=== PATIENT | female | born 1975 | race Caucasian/White ===

== ENCOUNTER 2019-10-19 18:12 | Emergency (ER) | payer OTHER ==
[2019-10-19 18:24] VITALS: BP 108/86; PULSE 85; TEMP 97.8; BMI 29.8
[2019-10-19 19:50] LABS: BASO % 0.3 % (0-2.0); EOS % 0.7 % (0-4.5); HEMATOCRIT 36.7 % (32.4-45.2); HEMOGLOBIN 12.2 GM/dl (10.7-15.3); LYMPH % 15.1 % (8-40); MCHC 33.2 g/dl (32.0-36.0); MEAN CELL VOLUME 90.3 fl (80-96); MEAN PLT VOLUME 8.4 fl (7.5-11.1); MONO % 6.7 % (3.8-10.2); NEUT % 77.2 % (42.8-82.8); PLATELET COUNT 290 K/MM3 (134-434); RBC 4.07 M/mm3 (3.60-5.2); RDW 12.3 % (11.6-15.6); WHITE BLOOD COUNT 14.3 K/mm3 (4.0-10.8)
[2019-10-19 20:02] LABS: ALBUMIN 3.6 g/dl (3.4-5.0); BILIRUBIN,TOTAL 0.4 mg/dl (0.2-1); CREATININE 0.8 mg/dl (0.55-1.3); TOT PROT 6.6 g/dl (6.4-8.2)
[2019-10-19 22:02] LABS: CALCIUM 8.6 mg/dl (8.5-10); POTASSIUM 3.8 mmol/L (3.5-5.1)
--- NOTE | 2019-10-19 22:47 | PDOC ---
Documentation entered by Belinda Devlin SCRIBE, acting as scribe for Moises Coleman MD. Moises Coleman MD: This documentation has been prepared by the scribe, Belinda Devlin SCRIBE, under my direction and personally reviewed by me in its entirety. I confirm that the documentation accurately reflects all work, treatment, procedures, and medical decision making performed by me. History of Present Illness - General Chief Complaint: Lightheaded Stated Complaint: DIZZINESS Time Seen by Provider: 10/19/19 19:14 History Source: Patient Exam Limitations: No Limitations - History of Present Illness Initial Comments: 10/19/19 19:32 The patient is a 43-year-old female with no reported past medical history or daily medication use who presents to the emergency department with lightheadedness, shortness of breath, weakness, and s/p a fall. The patient reports pain to her left hip, s/p a fall down 3 flights of stairs around 2:00 pm today. The patient states she was able to ambulate after the fall. The patient reports she went to the [employer] later today while being there, she started to feel lightheaded and weak, like she couldnt breathe anymore. The patient states she checked her heart rate on her watch, which was reported to be 51, which is lower than baseline. The patient reports she called her , who went to pick her up at the [employer]. The reports while the patient was in the car, she had difficulty getting out of the car, and the son called EMS. At the ER, the patient denies shortness of breath but reports she still feels weak. Denies leg swelling, hx of blood clots, fever, chills. Denies recent travel or prolonged immobilization. Allergies: NKA Family history: DM. Social history: Denies the use of tobacco. Past History - Past Medical History Allergies/Adverse Reactions: Allergies Allergy/AdvReac Type Severity Reaction Status Date / Time No Known Allergies Allergy Verified 10/19/19 18:13 Home Medications: Ambulatory Orders NK [No Known Home Medication] 10/19/19 COPD: No CHF: No Other medical history: PT DENIES - Psycho Social/Smoking Cessation Hx Smoking History: Never smoked Hx Alcohol Use: No Drug/Substance Use Hx: No Review of Systems - Review of Systems Able to Perform ROS?: Yes Comments:: 10/19/19 19:32 Constitutional - +weakness. Patient denies fever or chills. HEENT: denies vision changes, sore throat Respiratory: +SOB. Denies cough. Cardiac: denies chest pain, palpitations, light headedness, leg swelling Abd/GI: denies abd pain, nausea, vomiting, blood per rectum, melena, diarrhea : denies dysuria, frequency, discharge Musculskelatal - +left hip pain. denies back pain, joint swelling skin - denies bruising, erythema, rash neurological: +lightheadedness. denies headache, numbness, focal weakness, tingling, ataxia, weakness hematologic: denies anemia, easy bruising, easy bleeding *Physical Exam - Vital Signs Last Vital Signs Temp Pulse Resp BP Pulse Ox 97.8 F 85 17 108/86 100 10/19/19 18:13 10/19/19 18:13 10/19/19 18:13 10/19/19 18:13 10/19/19 18:13 - Physical Exam Comments: 10/19/19 19:34 CONSTITUTIONAL: Well-appearing; well-nourished; in no apparent distress HEAD: Normocephalic; atraumatic EYES: PERRL; EOM intact ENMT: External appears normal; normal oropharynx NECK: Supple; non-tender; no cervical lymphadenopathy CARD: Normal S1, S2; no murmurs, rubs, or gallops RESP: Normal chest excursion with respiration; breath sounds clear and equal bilaterally; no wheezes, rhonchi, or rales ABD: Soft, non-distended; non-tender; no palpable organomegaly, no palpable hernias MSK: no point tenderness. EXT: Normal ROM in all four extremities; non-tender to palpation; distal pulses intact SKIN: +15cm bruising to the left buttocks. Warm, dry, no rash NEURO: No focal neurological deficiencies. ED Treatment Course - LABORATORY CBC & Chemistry Diagram: 10/19/19 19:34 10/19/19 19:34 - ADDITIONAL ORDERS Additional order review: Laboratory Results 10/19/19 10/19/19 19:34 19:24 BUN 12.0 Creatinine 0.8 Est GFR (CKD-EPI)AfAm 103.19 Est GFR (CKD-EPI)NonAf 89.04 Random Glucose 111 H Total Bilirubin 0.4 AST 19 ALT 13 Alkaline Phosphatase 64 Troponin I < 0.03 Total Protein 6.6 Albumin 3.6 10/19/19 19:34 RBC 4.07 MCV 90.3 MCHC 33.2 RDW 12.3 MPV 8.4 Neutrophils % 77.2 Lymphocytes % 15.1 Monocytes % 6.7 Eosinophils % 0.7 Basophils % 0.3 - RADIOLOGY Radiology Studies Ordered: Category Date Time Status CHEST PA & LAT [RAD] Stat Radiology 10/19/19 19:15 Taken Medical Decision Making - Medical Decision Making 10/19/19 19:[address] Coleman at 18:21. Normal sinus rhythm at 77bpm. normal axis Normal intervals No ischemic findings 10/20/19 04:44 perc- cxr clear, as read by me, referred to radiology for definitive read buttock hematoma with no bony tenderness--will not image ? etiology of other symptoms; no event on monitor in ED continue amato outpt Discharge - Discharge Information Problems reviewed: Yes Clinical Impression/Diagnosis: Fall (on) (from) other stairs and steps, initial encounter Condition: Stable Disposition: HOME - Follow up/Referral - Patient Discharge Instructions Patient Printed Discharge Instructions: DI for Hematoma (Bruise) - Post Discharge Activity
--- NOTE | 2019-10-20 16:02 | EKG ---
Test Reason : Blood Pressure : / mmHG Vent. Rate : 077 BPM Atrial Rate : 077 BPM P-R Int : 164 ms QRS Dur : 086 ms QT Int : 366 ms P-R-T Axes : 037 051 034 degrees QTc Int : 414 ms NORMAL SINUS RHYTHM NORMAL ECG NO PREVIOUS ECGS AVAILABLE Confirmed by PATTI VANESSA MD ([id number]) on 10/20/2019 4:02:10 PM Referred By: KATELYN Confirmed By:PATTI VANESSA MD
== END 2019-10-19 21:28 | disposition home or self-care (01) ==
LOC: FER 18:12
DX: S30.0XXA Contusion of lower back and pelvis, initial encounter (principal); W10.9XXA Fall (on) (from) unspecified stairs and steps, initial encounter; Y93.89 Activity, other specified; Y92.9 Unspecified place or not applicable
CPT/HCPCS: 36415; 71046-TC-FY; 80053; 84484; 85025; 93005; 99283-25